=== PATIENT | female | born 1995 | race Caucasian/White ===

== ENCOUNTER 2021-10-04 00:04 | Emergency (ER) | payer OTHER ==
[2021-10-04 02:17] LABS: INFLUENZA A NAA NEGATIVE (NEGATIVE)
[2021-10-04 03:12] LABS: CORONAVIRUS 2019 SARS-COV-2 POSITIVE (NEGATIVE)
== END 2021-10-04 03:38 | disposition home or self-care (01) ==
LOC: FER 00:04
PROVIDERS: Emergency Medicine
DX: U07.1 COVID-19 (principal); Z88.0 Allergy status to penicillin; Z88.6 Allergy status to analgesic agent; Z28.310 Unvaccinated for COVID-19
CPT/HCPCS: 99283; U0002